=== PATIENT | female | born 1960 | race Caucasian/White ===

== ENCOUNTER 2017-05-20 20:19 | Emergency (ER) | payer MEDICAID ==
[~2017-05-20] VITALS: Ht 162.6 cm; Wt 77.1 kg
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
[2017-05-20] MEDS ORDERED: ONDANSETRON 4 MG TAB.RAPDIS ONE (21:09)
[2017-05-20] MEDS ORDERED: HYDROCODONE/APAP 5/325MG 1 EACH TABLET ONE (21:09)
--- NOTE | 2017-05-20 21:20 | NUR ---
medicated patient as ordered. xr at bedside.
[2017-05-20] MEDS ORDERED: ONDANSETRON 4 MG TAB.RAPDIS SL ONE (21:30)
[2017-05-20] MEDS ORDERED: HYDROCODONE/APAP 5/325MG 1 EACH TABLET PO ONE (21:30)
--- NOTE | 2017-05-20 22:08 | NUR ---
Patient discharged to home in stable condition. Written and verbal after care instructions given. Patient verbalizes understanding of instruction.
[2017-05-20 22:09] VITALS: BP 120/64
== END 2017-05-20 22:27 | disposition home or self-care (01) ==
LOC: ER 20:23
DX: S80.02XA Contusion of left knee, initial encounter (principal); S80.01XA Contusion of right knee, initial encounter; R10.13 Epigastric pain; V49.49XA Driver injured in collision with other motor vehicles in traffic accident, initial encounter; Y93.89 Activity, other specified; Y92.413 State road as the place of occurrence of the external cause; Y99.8 Other external cause status
CPT/HCPCS: 73564 ×2; 76705; 99284; A4606; Q0162; Z7610